=== PATIENT | female | born 2000 | race African-American/Black ===

== ENCOUNTER 2024-11-28 00:22 | Emergency (ER) | payer OTHER ==
[~2024-11-28] VITALS: Ht 170.2 cm; Wt 64.0 kg
[2024-11-28] MEDS ORDERED: FENTANYL CITRATE/PF 50MCG/ML 2ML VIAL IV ONE (00:30)
[2024-11-28] MEDS: ONDANSETRON HCL 4MG/2ML INJ IV ONE ×2 (00:38→04:08)
[2024-11-28] MEDS: FENTANYL CITRATE/PF 50MCG/ML 2ML VIAL IV NR (00:39)
[2024-11-28 00:50] VITALS: O2SAT 98
[2024-11-28] MEDS: KETAMINE HCL 50 MG/ML 10ML IV ONE (00:50)
[2024-11-28] MEDS ORDERED: IBUP-2029 MT (03:35)
[2024-11-28 04:00] VITALS: BP 122/78; PULSE 65; RESP 15; O2SAT 100
== END 2024-11-28 04:54 | disposition home or self-care (01) ==
LOC: ER 00:22
DX: S83.005A Unspecified dislocation of left patella, initial encounter (principal); X58.XXXA Exposure to other specified factors, initial encounter; Y93.89 Activity, other specified; Y92.89 Other specified places as the place of occurrence of the external cause; Y99.8 Other external cause status
CPT/HCPCS: 73560; 96374; 96375; 96376; 99152; 99285; J3010; J3490; J2405; Z7610 ×2

== ENCOUNTER 2024-12-06 08:41 | Emergency (ER) | payer OTHER ==
[~2024-12-06] VITALS: Ht 167.6 cm; Wt 58.0 kg
[~2024-12-06 08:41] MED LIST: IBUP-2029 MT
[2024-12-06 09:09] VITALS: O2SAT 99
[2024-12-06 10:15] VITALS: BP 118/70; PULSE 82; RESP 16; TEMP 36.72516; O2SAT 99
== END 2024-12-06 10:15 | disposition home or self-care (01) ==
LOC: ER 08:41
DX: S83.005A Unspecified dislocation of left patella, initial encounter (principal); X58.XXXA Exposure to other specified factors, initial encounter; Y93.89 Activity, other specified; Y92.89 Other specified places as the place of occurrence of the external cause; Y99.8 Other external cause status
CPT/HCPCS: 99281